=== PATIENT | female | born 1990 | race Asian ===

== ENCOUNTER → 2017-09-11 | Outpatient (CLI) | payer BC ==
[~2017-09-11] MED LIST: CIPRSO; IBUP800 PO; VICODIN 5-3001 EACH PO; Verotin-Gr Cap1 EACH PO
== END | disposition home or self-care (01) ==
LOC: LAB SHORT 12:05 → LAB 12:05
PROVIDERS: Obstetrics & Gynecology
DX: Z01.419 Encounter for gynecological examination (general) (routine) without abnormal findings (principal)
CPT/HCPCS: G0123

== ENCOUNTER → 2018-08-27 | Outpatient (CLI) | payer OTHER | END | disposition home or self-care (01) | LOC: PLD 13:08 → LAB SHORT 13:08 | DX: N92.0 Excessive and frequent menstruation with regular cycle (principal) | CPT/HCPCS: 88305 ==

== ENCOUNTER → 2018-09-18 | Outpatient (CLI) | payer OTHER ==
[2018-09-21 15:06] LABS: HPV 16 Negative (Negative); HPV 18 Negative (Negative); HPV OTHER HR TYPES Negative (Negative)
== END | disposition home or self-care (01) ==
LOC: LAB 09:32 → LAB SHORT 09:32
PROVIDERS: Obstetrics & Gynecology
DX: Z01.419 Encounter for gynecological examination (general) (routine) without abnormal findings (principal)
CPT/HCPCS: 87624; G0123

== ENCOUNTER 2019-07-19 05:49 | Day surgery (SDC) | payer OTHER ==
[~2019-07-19] VITALS: Ht 165.1 cm; Wt 87.6 kg
[~2019-07-19 05:49] MED LIST changes: +PROBIOTICS PO; +[UNRECOGNIZED DRUG - OTHER] PO; +[UNRECOGNIZED DRUG - OTHER] PO
--- NOTE | 2019-07-19 06:34 | NUR ---
Ambulatory in Day Surgery History, Chart, Medications and Allergies reviewed before start of procedure.Lungs clear T/O to Auscultation. Patient confirms NPO status and agrees with scheduled surgery. Patient reports completing Chlorhexadine shower X2 prior to admission to hospital. Surgical site prepped with 2% Chlorhexidine cloth wipe.
--- NOTE | 2019-07-19 16:45 | NUR ---
SHIFT SUMMARY S/P LAVH TODAY. LAP SITES TO ABD ARE CDI. SCANT VAGINAL BLEEDING TO LEIGHANN PAD. 1 NORCO + 0.5MG IV DILAUDID + SCHEDULED TORADOL FOR PAIN MANAGMENT. KPAD TO ABD FOR COMFORT. ELISEO REG DIET. IVF INFUSING PER ORDERS. CAMARENA PATENT. PT UP TO CHAIR WITH 1 MINIMAL SBA. FAMILY PRESENT AT BEDSIDE FOR SUPPORT. CALL LIGHT WITHIN REACH.
--- NOTE | 2019-07-20 04:05 | NUR ---
SHIFT SUMMARY POD#1. AAOX4. ABD INCISIONS WITH GAUZE X3 SCANT DRY SS DRAINAGE, NO INCREASE THIS SHIFT. DISCOMFORT CONTROLLED WITH 2 NORCO Q4H AND SCHEDULE TORADOL WITH DILAUDID 0.5MG X1 FOR BREAKTHROUGH. NO NAUSEA/EMESIS. PT UP IN ROOM AMBULATING YESTARDAY EVENING, CONTINUE TO ENCOURAGE TODAY. CAMARENA TO BE REMOVED THIS AM PER ORDERS. PT RESTING AT THIS TIME WITH CALL LIGHT IN REACH.
--- NOTE | 2019-07-20 04:51 | NUR ---
CAMARENA CATH DC'D EMPTIED 2400ML OF URINE AND DC'D CAMARENA. PT THEN AMBULATED TO BR AND THEN VOIDED ANOTHER 200ML. PT CHANGED LEIGHANN PAD WHICH HAD SMALL AMT OF BLOODY DRAINAGE. LEIGHANN CARE DONE AND PLACED NEW LEIGHANN PAD. PT NOW AMBULATED IN HALLWAY WITH FAMILY AND TOLERATING WELL.
[2019-07-20 05:34] LABS: BASOPHILS ABSOLUTE AUTO 0.01 K/mm3 (0.00-0.23); BASOPHILS PERCENT AUTO 0 % (0-2); EOSINOPHILS ABSOLUTE AUTO 0.03 K/mm3 (0.00-0.68); EOSINOPHILS PERCENT AUTO 0 % (0-6); Hematocrit 40.2 % (33.0-51.0); Hemoglobin 13.1 g/dL (11.5-16.0); IMMATURE GRAN ABSOLUTE AUTO 0.03 K/mm3 (0.00-0.10); IMMATURE GRAN PERCENT AUTO 0 % (0-1); LYMPHOCYTES ABSOLUTE AUTO 2.99 K/mm3 (0.84-5.20); LYMPHOCYTES PERCENT AUTO 26 % (21-46); MONOCYTES ABSOLUTE AUTO 0.77 K/mm3 (0.16-1.47); MONOCYTES PERCENT AUTO 7 % (4-13); Mean Corpuscular HGB 29.8 pg (26.0-34.0); Mean Corpuscular HGB Conc 32.6 g/dL (31.5-36.5); Mean Corpuscular Volume 91 fL (80-100); Mean Platelet Volume 9.9 fL (9.1-12.4); NEUTROPHILS ABSOLUTE AUTO 7.82 K/mm3 (1.96-9.15); NEUTROPHILS PERCENT AUTO 67 % (41-73); Platelet Count 280 K/mm3 (150-400); RDW Coefficient Variation 12.1 % (11.7-14.2); RDW Standard Deviation 40.9 fL (35.1-46.3); White Blood Cell Count 11.65 K/mm3 (4.00-11.30)
--- NOTE | 2019-07-20 08:47 | NUR ---
07/20/19 0847 Flori Akers VERIFICATIONS, AUDITS.
[2019-07-20] MEDS ORDERED: COLACE100 MG PO (09:33)
[2019-07-20] MEDS ORDERED: ACET325 PO (09:33)
[2019-07-20] MEDS ORDERED: Gas Relief80 MG PO (09:34)
[2019-07-20] MEDS ORDERED: HYDR1TAB94 PO (09:34)
--- NOTE | 2019-07-20 10:48 | NUR ---
DISCHARGE PT EDUCATED ON AND RECEIVED PRINTED DC INSTRUCTIONS AND VERBALIZED AN UNDERSTANDING. HARD RX FOR NORCO + IBUPROFEN GIVEN TO PT. PT VOIDING SPONTANEOUSLY. IV DC'D. PT GATHERING PERSONAL BELONGINGS AND BEING TRANSPORTED HOME BY PT MOTHER.
== END 2019-07-20 11:53 | disposition home or self-care (01) ==
LOC: ORSCMMR 05:49 → ORD 07:30 → ORSCMMR 07:30 → SURS 11:02 → ORSCMMR 07-20 11:53
PROVIDERS: Obstetrics & Gynecology
PROC: 0UT7FZZ Resection of Bilateral Fallopian Tubes, Via Natural or Artificial Opening With Percutaneous Endoscopic Assistance (ICD-10-PCS; principal; 2019-07-19 07:30)
PROC: 0UT9FZZ Resection of Uterus, Via Natural or Artificial Opening With Percutaneous Endoscopic Assistance (ICD-10-PCS; principal; 2019-07-19 07:30)
DX: N80.3 Endometriosis of pelvic peritoneum (principal); N94.6 Dysmenorrhea, unspecified; N92.0 Excessive and frequent menstruation with regular cycle; N80.0 Endometriosis of uterus; R10.2 Pelvic and perineal pain
CPT/HCPCS: 36415; 85025; 88307; A9270; A9270-GY; J0690; J1100; J1170; J1885; J2250; J2405; J2704; J2765; J3010; J7120

== ENCOUNTER → 2019-08-10 | Outpatient (CLI) | payer OTHER ==
[~2019-08-10] MED LIST changes: +ACET325 PO; +COLACE100 MG PO; +Gas Relief80 MG PO; +HYDR1TAB94 PO
[2019-08-11 11:25] LABS: Candida species (DNA Probe) Negative (NEGATIVE); G. vaginalis (DNA Probe) Positive (NEGATIVE); T. vaginalis (DNA Probe) Negative (NEGATIVE)
== END | disposition home or self-care (01) ==
LOC: LAB 14:15 → LAB SHORT 14:15
PROVIDERS: Obstetrics & Gynecology
DX: N89.8 Other specified noninflammatory disorders of vagina (principal)
CPT/HCPCS: 87480; 87510; 87660

== ENCOUNTER → 2023-06-12 | Outpatient (CLI) | payer OTHER | LOC: LAB 15:22 → LAB SHORT 15:22 | DX: L91.8 Other hypertrophic disorders of the skin (principal) | CPT/HCPCS: 88304 ==